=== PATIENT | female | born 2000 | race African-American/Black ===

== ENCOUNTER 2021-10-10 17:04 | Emergency (ER) | payer SELFPAY ==
[2021-10-10] MEDS ORDERED: Potassium Chloride 20 MEQ Tab.ER PO ONE (21:00)
== END 2021-10-10 22:00 | disposition other institution (70) ==
LOC: JD.ED 17:04
DX: F32.A Depression, unspecified (principal); R45.851 Suicidal ideations; R44.0 Auditory hallucinations; R44.1 Visual hallucinations; Z20.822 Contact with and (suspected) exposure to COVID-19
CPT/HCPCS: 36415; 80053; 80143; 80179; 80306; 80307; 81025; 84443; 85025; 87635; 99285; A9270; U0002